=== PATIENT | male | born 1955 | race Caucasian/White ===

== ENCOUNTER 2016-06-22 15:55 | Emergency (ER) | payer OTHER ==
[~2016-06-22] VITALS: Ht 182.9 cm; Wt 116.7 kg
[2016-06-22 16:50] LABS: MCH 30.6 PG (29.0-34.0); MCHC 34.3 G/DL (30.0-36.0); MCV 89.1 FL (86-99); PLATELET COUNT 311 K/uL (156-360); RBC DIS.WIDTH-CV 13.2 % (11.8-14.6); RED BLOOD COUNT 5.16 M/uL (4.00-5.50); WHITE BLOOD COUNT 9.2 K/uL (4.1-10.2)
[2016-06-22 17:01] LABS: CHLORIDE 103 mEq/L (99-109); POTASSIUM 3.8 mEq/L (3.7-5.4); SODIUM 138 mEq/L (136-147)
[2016-06-22 17:03] LABS: GLUCOSE 116 mg/dL (70-99)
[2016-06-22 17:04] LABS: ANION GAP 11 MEQ/L (2-14)
[2016-06-22 17:08] LABS: UREA NITROGEN (BUN) 14 mg/dL (9-23)
[2016-06-22 17:32] LABS: GFR ESTIMATE (CALCULATED) > 59 mL/min/
[2016-06-22 19:15] VITALS: BP 148/94
== END 2016-06-22 19:30 | disposition home or self-care (01) ==
LOC: EME 15:55
PROVIDERS: Emergency Medicine
DX: H53.2 Diplopia (principal); F17.200 Nicotine dependence, unspecified, uncomplicated
CPT/HCPCS: 70544; 70551; 80048; 85027; 99281; 99284; J2060